=== PATIENT | female | born 1995 | race Caucasian/White ===

== ENCOUNTER 2017-01-22 17:22 | Emergency (ER) | payer OTHER ==
[~2017-01-22] VITALS: Ht 177.8 cm; Wt 100.7 kg
[~2017-01-22 17:22] MED LIST: AMOXICILLIN500 MG PO; BENADRYL25 MG PO; CLINDAMYCIN HC300 MG PO; NORCO 5-325 TA1 EACH PO; PREDNISONE20 MG PO
[2017-01-22] MEDS ORDERED: BACTRIM DS TAB1 EACH PO (18:09)
== END 2017-01-22 18:19 | disposition home or self-care (01) ==
LOC: ED 17:22
DX: N93.9 Abnormal uterine and vaginal bleeding, unspecified (principal); N39.0 Urinary tract infection, site not specified; F17.200 Nicotine dependence, unspecified, uncomplicated; Z90.49 Acquired absence of other specified parts of digestive tract
CPT/HCPCS: 81001; 84703; 99283

== ENCOUNTER 2017-10-31 10:15 | Inpatient (IN) | payer OTHER ==
[~2017-10-31] VITALS: Ht 175.3 cm; Wt 118.0 kg
[~2017-10-31 10:15] MED LIST changes: +BACTRIM DS TAB1 EACH PO
[2017-11-01] MEDS ORDERED: PNV-SELECT TAB1 EACH PO (00:58)
[2017-11-01] MEDS ORDERED: IRON 100 PLUS1 EACH PO (00:59)
--- NOTE | 2017-11-02 08:45 | PR ---
[facility] [address] [place], [place] [address] Signed PP Progress Notes Datetime Report Generated by EMILE: 11/02/2017 08:45 SUBJECTIVE: [id number] Pain: Within normal limits Nausea/Vomiting: Denies Vital Signs: [id number] Vital Signs: Reviewed; Within Normal Limits EXAM: [id number] Cardiovascular: Not Done Respiratory: Not Done Abdomen/Uterus: Abnormal Lochia: Normal Vulva/Perineum: Not Done Breasts: Not Done CVA Tenderness: Not Done Extremities: Normal Incision: Not Applicable Progress: Normal Exam Comments: Fundus firm, NT @ U-1. H/H 8.9/25.3, WBC 11.5, plat 215k IMPRESSION/PLAN/PROCEDURES: [id number] Impression: Normal progression Plan: Discharge Procedures: Rhogam Progress Notes: Doing well. She desires D/C. Signing Physician: Tiffanie Manriquez MD Copies: ~ *Electronically Signed* 11/02/17 0845 TIFFANIE MANRIQUEZ MD PATIENT NAME: SAJANSANDRALIANA JUAN PROGRESS NOTE DATE OF : [birth year] PHYSICIAN: TIFFANIE MANRIQUEZ MD RPT #: [id number] REPORT IS CONFIDENTIAL AND NOT TO BE RELEASED WITHOUT AUTHORIZATION
== END 2017-11-02 15:10 | disposition home or self-care (01) | DRG 774 ==
LOC: FBC 11-01 00:11
PROVIDERS: ADMIT Obstetrics & Gynecology
PROC: 10E0XZZ Delivery of Products of Conception, External Approach (ICD-10-PCS; principal; 2017-11-01)
PROC: 0KQM0ZZ Repair Perineum Muscle, Open Approach (ICD-10-PCS; 2017-11-01)
PROC: 3E0P7VZ Introduction of Hormone into Female Reproductive, Via Natural or Artificial Opening (ICD-10-PCS; 2017-11-01)
PROC: 10907ZC Drainage of Amniotic Fluid, Therapeutic from Products of Conception, Via Natural or Artificial Opening (ICD-10-PCS; 2017-11-01)
PROC: 0UQMXZZ Repair Vulva, External Approach (ICD-10-PCS; 2017-11-01)
PROC: 00HU33Z Insertion of Infusion Device into Spinal Canal, Percutaneous Approach (ICD-10-PCS; 2017-11-01)
PROC: 3E0R3BZ Introduction of Anesthetic Agent into Spinal Canal, Percutaneous Approach (ICD-10-PCS; 2017-11-01)
DX: O99.214 Obesity complicating childbirth (principal); O72.1 Other immediate postpartum hemorrhage; K91.89 Other postprocedural complications and disorders of digestive system; E66.9 Obesity, unspecified; O99.334 Smoking (tobacco) complicating childbirth; F17.210 Nicotine dependence, cigarettes, uncomplicated; O99.62 Diseases of the digestive system complicating childbirth; K59.1 Functional diarrhea; O70.1 Second degree perineal laceration during delivery; O71.82 Other specified trauma to perineum and vulva; Z87.440 Personal history of urinary (tract) infections; Z68.38 Body mass index [BMI] 38.0-38.9, adult; Z3A.38 38 weeks gestation of pregnancy; Z37.0 Single live birth
CPT/HCPCS: 01960; 36415; 85027; 86900; 86901; J2405; J2590; J2795; J3010; J7120